=== PATIENT | female | born 1940 | race Caucasian/White ===

== ENCOUNTER → 2016-10-18 | Day surgery (SDC) | payer OTHER ==
[2016-10-14 09:50] VITALS: Ht 162.6 cm; Wt 86.4 kg
[~2016-10-18] VITALS: Ht 162.6 cm; Wt 86.4 kg
[~2016-10-18] MED LIST: ASPCH81X PO; LEVO88TA3 PO; LISI10TA PO; MULT-1018 PO; MULT-663 PO; ONDANSETRON INJ 2 MG/ML 2 ML VIAL IV PRN; POTA10TA PO; SIMV20TA2 PO
--- NOTE | 2016-10-18 08:58 | Endo History and Physical ---
History & Physical Date of Service: Oct 18, 2016. Chief Complaint: rectal bleeding,history of diverticulitis Referring Physician: Dr. Consuelo Bryan History of Present Illness History of recurrent diverticulitis for CRC screening today. Past Surgical History Hx Cardiac Surgery: No Hx Internal Defibrillator: No Hx Pacemaker: No Hx Abdominal Surgery: Yes ([facility] BSO, TEGAN) Hx of Implantable Prosthesis: No Hx Post-Op Nausea and Vomiting: No Hx Cancer Surgery: No Hx Thoracic Surgery: No Hx Orthopedic: No Hx Urinary Tract Surgery: No Family History None Social History Smoking Status: Never Smoker Hx Substance Use: No Hx Alcohol Use: Yes (OCCASIONALLY) Allergies Coded Allergies: Sulfa Antibiotics (Verified Allergy, Unknown, SWELLING, 10/14/16) Current Medications Reported Home Medications Medications Dose Route/Sig Max Daily Dose Days Date Category Hair Skin and Nails Formu (Multiple Vitamins W/ Minerals) 1 Tab Tab 1 Tab PO DAILY 10/14/16 Reported Aspirin Chewable (Aspirin) 81 Mg Chew 81 Mg PO HS 10/14/16 Reported Citracal Plus (Multiple Minerals W/ Vitamins) 1 Tab Tab 1 Tab PO DAILY 10/14/16 Reported K-Tabs (Potassium Chloride) 10 Meq Tab 1 Tab PO QAM 10/14/16 Reported Zocor (Simvastatin) 20 Mg Tab 20 Mg PO QPM 10/14/16 Reported Levothyroxine Sodium 88 Mcg Tab 1 Tab PO QAM 90 10/14/16 Reported Prinivil (Lisinopril) 10 Mg Tab 10 Mg PO QAM 10/14/16 Reported Vital Signs Weight (Kilograms): 86.36 Height (Feet): 5 Height (Inches): 4 Date Time Temp Pulse Resp B/P (MAP) Pulse Ox O2 Delivery O2 Flow Rate FiO2 10/18/16 08:36 36.7 73 20 140/97 (111) 95 Room Air Physical Exam General Appearance: no apparent distress Respiratory/Chest: Auscultation: breath sounds normal Cardiovascular: Heart Auscultation: RRR Abdomen: Inspection & Palpation: soft Assessment and Plan Patient for a colonoscopy today, we have discussed the risks to include bleeding , infection, perforation, pain and missed polyps.
--- NOTE | 2016-10-18 09:33 | GI REPORT ---
Procedure Date: 10/18/2016 9:03 AM Procedure: Colonoscopy Indications: Screening for colorectal malignant neoplasm Medicines: Monitored Anesthesia Care Complications: No immediate complications. Estimated blood loss: Minimal. Estimated Blood Loss: Estimated blood loss: none. Procedure: Pre-Anesthesia Assessment: - Prior to the procedure, a History and Physical was performed, and patient medications, allergies and sensitivities were reviewed. The patient's tolerance of previous anesthesia was reviewed. - The risks and benefits of the procedure and the sedation options and risks were discussed with the patient. All questions were answered and informed consent was obtained. - Patient identification and proposed procedure were verified prior to the procedure by the physician, the nurse and the heating engineer. The procedure was verified in the procedure room. - Pre-procedure physical examination revealed no contraindications to sedation. - ASA Grade Assessment: II - A patient with mild systemic disease. - After reviewing the risks and benefits, the patient was deemed in satisfactory condition to undergo the procedure. - The anesthesia plan was to use monitored anesthesia care (MAC). - The heart rate, respiratory rate, oxygen saturations, blood pressure, adequacy of pulmonary ventilation, and response to care were monitored throughout the procedure. - The physical status of the patient was re-assessed after the procedure. After I obtained informed consent, the scope was passed under direct vision. Throughout the procedure, the patient's blood pressure, pulse, and oxygen saturations were monitored continuously. The scope was introduced through the anus and advanced to the terminal ileum. The colonoscopy was performed without difficulty. The patient tolerated the procedure well. The quality of the bowel preparation was good. Findings: The perianal and digital rectal examinations were normal. Pertinent negatives include normal sphincter tone. The terminal ileum appeared normal. A few medium-mouthed diverticula were found in the ascending colon. Multiple small and large-mouthed diverticula were found in the descending colon. Multiple small and large-mouthed diverticula were found in the sigmoid colon. At 30 cm there was a mild amount of diverticular associated inflammatory changes. Biopsies were taken with a cold forceps for histology. Estimated blood loss was minimal. Internal hemorrhoids were found during retroflexion. The hemorrhoids were mild. The exam was otherwise without abnormality. Impression: - The examined portion of the ileum was normal. - Mild diverticulosis in the ascending colon. - Mild diverticulosis in the descending colon. - Moderate diverticulosis with mild inflammation in the sigmoid colon. Biopsied. - Internal hemorrhoids. - The examination was otherwise normal. Recommendation: - Discharge patient to home (ambulatory). - Advance diet as tolerated today. - Await pathology results. - Repeat colonoscopy in 10 years for screening purposes. - Return to GI office PRN. Enrique Johnson D.O. Enrique Johnson, 10/18/2016 9:32:02 AM This report has been signed electronically. Note Initiated On: 10/18/2016 9:03 AM I attest to the content of the Intraoperative Record and orders documented therein, exceptions below
--- NOTE | 2016-10-18 09:35 | Discharge Instructions ---
Endoscopy Patient Instructions Date / Procedure(s) Performed Oct 18, 2016. Colonoscopy Allergy Information Coded Allergies: Sulfa Antibiotics (Verified Allergy, Unknown, SWELLING, 10/14/16) Discharge Date / Findings Oct 18, 2016. Diverticulosis of colon Medication Instructions Stopped Medication(s): took ASA last night Reported Home Medications Medications Dose Route/Sig Max Daily Dose Days Date Category Hair Skin and Nails Formu (Multiple Vitamins W/ Minerals) 1 Tab Tab 1 Tab PO DAILY 10/14/16 Reported Aspirin Chewable (Aspirin) 81 Mg Chew 81 Mg PO HS 10/14/16 Reported Citracal Plus (Multiple Minerals W/ Vitamins) 1 Tab Tab 1 Tab PO DAILY 10/14/16 Reported K-Tabs (Potassium Chloride) 10 Meq Tab 1 Tab PO QAM 10/14/16 Reported Zocor (Simvastatin) 20 Mg Tab 20 Mg PO QPM 10/14/16 Reported Levothyroxine Sodium 88 Mcg Tab 1 Tab PO QAM 90 10/14/16 Reported Prinivil (Lisinopril) 10 Mg Tab 10 Mg PO QAM 10/14/16 Reported Provider Instructions Activity Restrictions - No exercising or heavy lifting for 24 hours. - Do not drink alcohol the day of the procedure. - Do not drive a car or operate machinery until the day after the procedure. - Do not make any important decisions or sign important papers in 24 hours after the procedure. Following Day: - Return to full activity which may include returning to work/school. Diet Start your diet with liquids and light foods (jello, soup, juice, toast). Then eat your usual diet if not nauseated. Treatment For Common After Affects For mild abdominal pain, bloating, or excessive gas: - Rest - Eat lightly - Lie on right side Follow-Up Information Follow-up with Dr. Consuelo Bryan as scheduled Repeat colonoscopy in 10 years Continue with fiber supplementation If sigmoid diverticulitis recurrs would consider an evaluation by a General Surgeon. Anesthesia Information What You Should Know You have had a procedure that required some medicine to reduce anxiety and discomfort. This treatment is called moderate sedation. After receiving the treatment, you may be sleepy, but you will be able to breathe on your own. The effects of the treatment may last for several hours. Follow these instructions along with Activity/Diet recommendations noted above: * Do NOT do anything where dizziness or clumsiness would be dangerous. * Rest quietly at home today, then you can be up and about tomorrow. * Have a responsible person stay with you the rest of today. * You may have had an I.V. today. If so, you may take the dressing off later today. Recommendations Call your doctor if: * Trouble breathing * Continuous vomiting for more than 24 hours * Temperature above 101 degrees * Severe abdominal pain or bloating * Pain not relieved by pain medicine ordered * There is increased drainage or redness from any incision * A large amount of rectal bleeding greater than 2-3 tablespoons. (If you had a polyp/s removed or have hemorrhoids, a small amount of blood - from the rectum is to be expected.) * You have any unanswered questions or concerns. IN THE EVENT OF A SERIOUS EMERGENCY, GO TO THE NEAREST EMERGENCY ROOM Your discharge instructions were prepared by provider Enrique Johnson. Patient Instructions Signature Page Kelsie Diaz Patient (or Guardian) Signature/Date: I have read and understand the instructions given to me by my caregivers. Caregiver/RN/Doctor Signature/Date: The above-named patient and/or guardian has received patient instructions on this date. + Original Patient Signature Page (only) stays with chart. Please make copy for patient.
[2016-10-18 09:59] VITALS: BP 176/79; PULSE 65; O2SAT 97
--- NOTE | 2016-10-18 11:04 | Anesthesiology Progress Note ---
Anesthesia Post Op Note Date & Time Oct 18, 2016 at 11:04 Vital Signs Pain Intensity: 0 Vital Signs Past 12 Hours Date Time Temp Pulse Resp B/P (MAP) Pulse Ox O2 Delivery O2 Flow Rate FiO2 10/18/16 09:59 65 20 176/79 (111) 97 Room Air 10/18/16 09:45 61 20 166/84 (111) 97 Room Air 10/18/16 09:30 36.4 62 20 160/73 (102) 95 Room Air 10/18/16 08:48 72 16 111/75 (87) 94 Room Air 10/18/16 08:36 36.7 73 20 140/97 (111) 95 Room Air Notes Mental Status: alert / awake / arousable, participated in evaluation Pt Amnestic to Procedure: Yes Nausea / Vomiting: adequately controlled Pain: adequately controlled Airway Patency, RR, SpO2: stable & adequate BP & HR: stable & adequate Hydration State: stable & adequate Anesthetic Complications: no major complications apparent
== END | disposition home or self-care (01) ==
LOC: C.GI 08:15
PROVIDERS: ATTEND Internal Medicine Gastroenterology
DX: Z12.11 Encounter for screening for malignant neoplasm of colon (principal); K57.30 Diverticulosis of large intestine without perforation or abscess without bleeding; K64.8 Other hemorrhoids; K52.9 Noninfective gastroenteritis and colitis, unspecified; Z79.82 Long term (current) use of aspirin; Z79.899 Other long term (current) drug therapy